=== PATIENT | male | born 1975 | race Asian ===

== ENCOUNTER 2018-01-05 16:08 | Emergency (ER) | payer OTHER ==
[2018-01-05 16:20] VITALS: Ht 170.2 cm
[2018-01-05 17:38] VITALS: BP 113/70
== END 2018-01-05 17:31 | disposition home or self-care (01) ==
LOC: ED 16:08
DX: S83.92XA Sprain of unspecified site of left knee, initial encounter (principal); X50.1XXA Overexertion from prolonged static or awkward postures, initial encounter; Y93.89 Activity, other specified; Y92.89 Other specified places as the place of occurrence of the external cause; Y99.8 Other external cause status